=== PATIENT | male | born 1995 | race Two or more races ===

== ENCOUNTER 2024-01-23 15:47 | Outpatient (CLI) | payer MEDICAID | END 2024-01-23 23:59 | disposition home or self-care (01) | LOC: CARD DIAG 15:47 | PROVIDERS: ATTEND Family Medicine | DX: I37.1 Nonrheumatic pulmonary valve insufficiency (principal); I51.7 Cardiomegaly | CPT/HCPCS: 93306 ==

== ENCOUNTER 2024-10-23 15:27 | Outpatient (CLI) | payer MEDICAID ==
--- NOTE | 2024-10-23 18:18 | RADIOLOGY REPORT ---
PROCEDURE: MR MRI HEAD INDICATION: HEARING LOSS EXAM DATE: 10/23/2024 03:29 PM COMPARISON: None TECHNIQUE: MRI of the brain and IAC's without intravenous contrast. FINDINGS: Diffusion weighted images of the brain demonstrate no evidence of acute infarction. There is no evidence of acute intracranial hemorrhage, extra-axial collection, mass effect, midline s hift, herniation or hydrocephalus. The ventricles, sulci and cisterns appear age appropriate. The signal intensities of the brain parenchyma are within normal limits. Negative noncontrast IAC's. There are no signal abnormalities on the susceptibility weighted sequences. The major vascular flow voids are present. The visualized paranasal sinuses and mastoid air cells are clear. The surrounding soft tissues and o sseous structures are unremarkable. IMPRESSION: 1. No evidence of acute infarction, intracranial hemorrhage, mass effect or hydrocephalus. [employer] non contrast IAC's. HS:Y
== END 2024-10-23 23:59 | disposition home or self-care (01) ==
LOC: MRI02 15:27
PROVIDERS: ATTEND Family Medicine
DX: H90.3 Sensorineural hearing loss, bilateral (principal)
CPT/HCPCS: 70551